=== PATIENT | male | born 1960 | race Caucasian/White ===

== ENCOUNTER 2016-12-22 08:41 | Observation (INO) | payer SELFPAY ==
[~2016-12-22] VITALS: Ht 185.4 cm; Wt 87.4 kg
[2016-12-22] VITALS (10 sets, daily range): BP systolic 99–134; BP diastolic 58–93; PULSE 81–92; RESP 16–20; TEMP 97.9–98.2; O2SAT 95–97
[~2016-12-22 08:41] MED LIST: ULTR50TA PO
[2016-12-22] MEDS ORDERED: SODIUM CHLORIDE 0.9% FLUSH 10 ML FLUSH IVF PRN (09:00)
[2016-12-22 09:05] LABS: AUTOMATED NEUTROPHIL # 5.3 TH/MM3 (1.8-7.7); BASOPHIL # 0.4 TH/MM3 (0-0.2); BASOPHIL % 4.8 % (0.0-2.0); EOSINOPHIL # 0.1 TH/MM3 (0-0.4); EOSINOPHIL % 0.6 % (0.0-4.0); HEMATOCRIT 44.1 % (39.0-51.0); HEMO FLAGS DIFF FINAL; LYMPH % 24.8 % (9.0-44.0); LYMPHOCYTE # 2.2 TH/MM3 (1.0-4.8); MEAN CELL VOLUME 100.1 FL (80.0-100.0); MEAN CORPUSCULAR HEMOGLOBIN 34.2 PG (27.0-34.0); MEAN CORPUSCULAR HGB CONC 34.1 % (32.0-36.0); MONO % 8.9 % (0.0-8.0); NEUT % 60.9 % (16.0-70.0); PLATELET COUNT 178 TH/MM3 (150-450); RED CELL DISTRIBUTION WIDTH 12.8 % (11.6-17.2); WHITE BLOOD COUNT 8.8 TH/MM3 (4.0-11.0)
[2016-12-22] MEDS ORDERED: NITROGLYCERIN 0.4 MG SL 25 TABS/BTL SL ONE (09:15)
[2016-12-22 09:17] LABS: APTT (PATIENT) 27.5 SEC (24.3-30.1); INTERNATIONAL NORMALIZED RATIO 0.9 RATIO
--- NOTE | 2016-12-22 09:19 | PD ---
HPI Chief Complaint: Chest Pain Time Seen by Provider: 08:47 Travel History International Travel<30 days: No Contact w/Intl Traveler<30days: No Traveled to known affect area: No History of Present Illness HPI 56-year-old male presents with central chest pain and left arm soreness that started yesterday. He states it feels uncomfortable. He denies prior history of this. He notes taking an aspirin prior to arrival. He denies prior cardiac workup or following with a corporate planning manager. He denies prior cardiac history. He denies other concurrent complaints. He notes family history of heart disease. He denies specific modifying factors. Duration is one day. PFSH Past Medical History Cardiovascular Problems: No Diminished Hearing: No Endocrine: No Gastrointestinal Disorders: No Genitourinary: No Immune Disorder: No Inguinal Hernia: Yes (15 YRS AGO) Musculoskeletal: No Neurologic: No Reproductive: No Respiratory: No Tetanus Vaccination: > 5 Years Influenza Vaccination: No Past Surgical History Abdominal Surgery: Yes (HERNIA REPAIR) Other Surgery: Yes (HERNIA) Family History Family Myocardial Infarction: Yes Family Hypercholesterolemia: Yes Social History Alcohol Use: Yes (daily) Tobacco Use: Yes (2-3 cigars daily) Substance Use: No (denies to me) Allergies-Medications (Allergen,Severity, Reaction): Coded Allergies: No Known Allergies (Verified , 12/22/16) Reported Meds & Prescriptions Reported Meds & Active Scripts Active No Active Prescriptions or Reported Medications Review of Systems Except as stated in HPI: all other systems reviewed are Neg Physical Exam Narrative GENERAL: Well-nourished, well-developed patient. SKIN: Warm and dry. HEAD: Normocephalic and atraumatic. EYES: No injection or drainage. ENT: No nasal drainage noted. NECK: Supple, trachea midline. CARDIOVASCULAR: Regular rate and rhythm RESPIRATORY: Breath sounds equal bilaterally. No accessory muscle use. GASTROINTESTINAL: Abdomen soft, non-tender, nondistended. EXTREMITIES: No edema. NEUROLOGICAL: Awake and alert. Motor and sensory grossly within normal limits. Normal speech. Data Data Last Documented VS Vital Signs Date Time Temp Pulse Resp B/P Pulse Ox O2 Delivery O2 Flow Rate FiO2 12/22/16 10:38 99/58 12/22/16 10:29 87 16 95 Room Air 12/22/16 08:50 98.0 Orders Electrocardiogram (12/22/16 08:49) Ckmb (Isoenzyme) Profile (12/22/16 08:49) Complete Blood Count With Diff (12/22/16 08:49) Comprehensive Metabolic Panel (12/22/16 08:49) Magnesium (Mg) (12/22/16 08:49) Prothrombin Time / Inr (Pt) (12/22/16 08:49) Act Partial Throm Time (Ptt) (12/22/16 08:49) Troponin I (12/22/16 08:49) Chest, Single Ap (12/22/16 08:49) Ecg Monitoring (12/22/16 08:49) Bilateral Bp Monitoring (12/22/16 08:49) Iv Access Insert/Monitor (12/22/16 08:49) Oximetry (12/22/16 08:49) Sodium Chloride 0.9% Flush (Ns Flush) (12/22/16 09:00) Lipase (12/22/16 08:49) Nitroglycerin Sl (Nitrostat Sl) (12/22/16 09:15) Drug Screen, Random Urine (12/22/16 09:17) Sodium Chlorid 0.9% 500 Ml Inj (Ns 500 M (12/22/16 09:30) Sodium Chlorid 0.9% 500 Ml Inj (Ns 500 M (12/22/16 10:15) CKMB (12/22/16 09:20) CKMB% (12/22/16 09:20) Admit Order (Ed Use Only) (12/22/16 10:54) Labs Laboratory Tests Test 12/22/16 12/22/16 08:55 09:20 White Blood Count 8.8 TH/MM3 Red Blood Count 4.40 MIL/MM3 Hemoglobin 15.1 GM/DL Hematocrit 44.1 % Mean Corpuscular Volume 100.1 FL Mean Corpuscular Hemoglobin 34.2 PG Mean Corpuscular Hemoglobin 34.1 % Concent Red Cell Distribution Width 12.8 % Platelet Count 178 TH/MM3 Mean Platelet Volume 7.8 FL Neutrophils (%) (Auto) 60.9 % Lymphocytes (%) (Auto) 24.8 % Monocytes (%) (Auto) 8.9 % Eosinophils (%) (Auto) 0.6 % Basophils (%) (Auto) 4.8 % Neutrophils # (Auto) 5.3 TH/MM3 Lymphocytes # (Auto) 2.2 TH/MM3 Monocytes # (Auto) 0.8 TH/MM3 Eosinophils # (Auto) 0.1 TH/MM3 Basophils # (Auto) 0.4 TH/MM3 CBC Comment DIFF FINAL Differential Comment Prothrombin Time 10.0 SEC Prothromb Time International 0.9 RATIO Ratio Activated Partial 27.5 SEC Thromboplast Time Sodium Level 138 MEQ/L Potassium Level 4.4 MEQ/L Chloride Level 103 MEQ/L Carbon Dioxide Level 26.3 MEQ/L Anion Gap 9 MEQ/L Blood Urea Nitrogen 8 MG/DL Creatinine 0.72 MG/DL Estimat Glomerular Filtration 113 ML/MIN Rate Random Glucose 124 MG/DL Calcium Level 9.1 MG/DL Magnesium Level 1.6 MG/DL Total Bilirubin 0.5 MG/DL Aspartate Amino Transf 36 U/L (AST/SGOT) Alanine Aminotransferase 38 U/L (ALT/SGPT) Alkaline Phosphatase 117 U/L Total Creatine Kinase 101 U/L Creatine Kinase MB 1.7 NG/ML Troponin I LESS THAN 0.02 NG/ML Total Protein 8.1 GM/DL Albumin 3.7 GM/DL Lipase 132 U/L MDM Medical Decision Making Medical Screen Exam Complete: Yes Emergency Medical Condition: Yes Medical Record Reviewed: Yes (past history confirmed, no prior EKG) Interpretation(s) EKG is sinus rhythm at 90, isolated minimal elevation V2 without reciprocal changes CBC & BMP Diagram 12/22/16 08:55 12/22/16 09:20 Last 24 hours Impressions Chest X-Ray 12/22/16 0849 Signed Impressions: Service Date/Time: Thursday, December 22, 2016 09:00 - CONCLUSION: No acute disease. Eric Colin MD FACR Differential Diagnosis Angina, gastritis, pancreatitis, musculoskeletal, ID Narrative Course Will check blood work, EKG, chest x-ray and dose with nitroglycerin and discuss with cardiology BP has improved with IV fluid hydration, will dose with nitroglycerin pain decreased from a 5 to a 4 with nitro but decreased bp, Patient agrees to admission to the hospital Physician Communication Physician Communication dr hicks agrees not a stemi after review of ekg, to control pain and trend troponin dr hicks states if hospitalist confortable can stay in [facility] and he will be available dr farley agrees to [facility] observation Admitting Information Admitting Physician Requests: Observation Scripts No Active Prescriptions or Reported Meds Berkley Antonio MD Dec 22, 2016 09:19
[2016-12-22] MEDS ORDERED: SODIUM CHLORID 0.9% 500 ML INJ 500 ML IV ONE ×2 (09:30→10:15)
[2016-12-22 09:55] LABS: BICARBONATE 26.3 MEQ/L (21.0-32.0)
[2016-12-22 09:56] LABS: BLOOD UREA NITROGEN 8 MG/DL (7-18); MAGNESIUM 1.6 MG/DL (1.5-2.5)
--- NOTE | 2016-12-22 09:56 | RADRPT ---
EXAM DATE/TIME: 12/22/2016 09:00 [facility] COMPARISON: No previous studies available for comparison. INDICATIONS : Chest pain and shortness of breath. MEDICAL HISTORY : None. SURGICAL HISTORY : None. ENCOUNTER: Initial ACUITY: 3 days PAIN SCORE: 5/10 LOCATION: Bilateral chest FINDINGS: A single view of the chest demonstrates the lungs to be symmetrically aerated without evidence of mas s, infiltrate or effusion. The cardiomediastinal contours are unremarkable. Osseous structures are intact. CONCLUSION: No acute disease. Eric Colin MD FACR on December 22, 2016 at 9:54 Board Certified Radiologist. This report was verified electronically.
[2016-12-22 09:58] LABS: ALT (GPT) 38 U/L (12-78); GLOMERULAR FILTRATION RATE 113 ML/MIN (>89)
[2016-12-22 10:00] LABS: ANION GAP 9 MEQ/L (5-15); CHLORIDE 103 MEQ/L (98-107); POTASSIUM 4.4 MEQ/L (3.5-5.1); SODIUM (NA) 138 MEQ/L (136-145); TOTAL BILIRUBIN ADULT 0.5 MG/DL (0.2-1.0)
[2016-12-22 10:01] LABS: ALKALINE PHOSPHATASE 117 U/L (45-117); CREATINE KINASE 101 U/L (39-308)
[2016-12-22 10:05] LABS: AST (GOT) 36 U/L (15-37)
[2016-12-22 10:14] LABS: CKMB 1.7 NG/ML (0.5-3.6)
[2016-12-22] MEDS ORDERED: SODIUM CHLORIDE 0.9% FLUSH 10 ML FLUSH IV FLUSH PRN (11:00)
[2016-12-22 11:33] LABS: AMPHETAMINE, URINE NEG (NEG)
[2016-12-22 11:34] LABS: BARBITURATES, URINE NEG (NEG)
[2016-12-22 11:39] LABS: COCAINE, URINE NEG (NEG)
[2016-12-22 12:04] LABS: CREATINE KINASE 66 U/L (39-308)
--- NOTE | 2016-12-22 15:13 | HHI.HP ---
HPI Primary Care Physician No Primary Care Physician Admission Diagnosis chest pain Diagnoses: Chief Complaint: chest pain History of Present Illness Patient is a 56-year-old gentleman with a history of alcohol dependency who comes in complaining of 10 out of 10 substernal chest pain radiating down the left arm which started 1 day ago. He did not try any [id number] medication but thought rest might have helped it. Unfortunately he came back. He described the pain as tightness. He called his ex- who gave him aspirin and brought him to the hospital. The patient did have abnormal EKG and was seen in the emergency room team for this. My review the EKG does show some minimal if at all elevation. There are no reciprocal changes or changes consistent with ischemic event. Patient has had negative cardiac enzymes. He has not eaten at all today and does not drink caffeine. Patient will be observed in the chest pain center and we will follow his progress with the nuclear stress test Review of Systems Constitutional: DENIES: Diaphoretic episodes, Fatigue, Fever, Weight gain, Weight loss, Chills, Dizziness, Change in appetite, Night Sweats Endocrine: DENIES: Heat/cold intolerance, Polydipsia, Polyuria, Polyphagia Eyes: DENIES: Blurred vision, Diplopia, Eye inflammation, Eye pain, Vision loss , Photosensitivity, Double Vision Ears, nose, mouth, throat: DENIES: Tinnitus, Hearing loss, Vertigo, Nasal discharge, Oral lesions, Throat pain, Hoarseness, Ear Pain, Running Nose, Epistaxis, Sinus Pain, Toothache, Odynophagia Respiratory: DENIES: Apneas, Cough, Snoring, Wheezing, Hemoptysis, Sputum production, Shortness of breath Cardiovascular: COMPLAINS OF: Chest pain Gastrointestinal: DENIES: Abdominal pain, Black stools, Bloody stools, Constipation, Diarrhea, Nausea, Vomiting, Difficulty Swallowing, Anorexia Genitourinary: DENIES: Sexual dysfunction, Urinary frequency, Urinary incontinence, Urgency, Hematuria, Dysuria, Nocturia, Penile Discharge, Testicular Pain, Testicular Swelling Integumentary: DENIES: Abnormal pigmentation, Nail changes, Pruritus, Rash Hematologic/lymphatic: DENIES: Bruising, Lymphadenopathy Immunologic/allergic: DENIES: Eczema, Urticaria Neurologic: DENIES: Abnormal gait, Headache, Localized weakness, Paresthesias, Seizures, Speech Problems, Tremor, Poor Balance Psychiatric: DENIES: Anxiety, Confusion, Mood changes, Depression, Hallucinations, Agitation, Suicidal Ideation, Homicidal Ideation, Delusions Past Family Social History Past Medical History none Past Surgical History hernia repair Reported Medications none Allergies: Coded Allergies: No Known Allergies (Verified , 12/22/16) Active Ordered Medications reviewed in the EMR Family History mom from [place] father with cad at 78 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 SKIN: No rashes, ecchymoses or lesions. Cool and dry. HEAD: Atraumatic. Normocephalic. No temporal or scalp tenderness. EYES: Pupils equal round and reactive. Extraocular motions intact. No scleral icterus. bilat eye erythema, right eye drainage ENT: Nose without bleeding, purulent drainage or septal hematoma. Throat without erythema, tonsillar hypertrophy or exudate. Uvula midline. Airway patent. NECK: Trachea midline. No JVD or lymphadenopathy. Supple, nontender, no meningeal signs. CARDIOVASCULAR: Regular rate and rhythm without murmurs, gallops, or rubs. RESPIRATORY: Clear to auscultation. Breath sounds equal bilaterally. No wheezes , rales, or rhonchi. GASTROINTESTINAL: Abdomen soft, non-tender, nondistended. No hepato-splenomegaly , or palpable masses. No guarding. MUSCULOSKELETAL: Extremities without clubbing, cyanosis, or edema. No joint tenderness, effusion, or edema noted. No calf tenderness. Negative Homans sign bilaterally. NEUROLOGICAL: Awake and alert. Cranial nerves II through XII intact. Motor and sensory grossly within normal limits. Five out of 5 muscle strength in all muscle groups. Normal speech. Laboratory Laboratory Tests Test 12/22/16 12/22/16 12/22/16 12/22/16 08:55 09:20 11:00 11:40 White Blood Count 8.8 Red Blood Count 4.40 Hemoglobin 15.1 Hematocrit 44.1 Mean Corpuscular Volume 100.1 Mean Corpuscular Hemoglobin 34.2 Mean Corpuscular Hemoglobin 34.1 Concent Red Cell Distribution Width 12.8 Platelet Count 178 Mean Platelet Volume 7.8 Neutrophils (%) (Auto) 60.9 Lymphocytes (%) (Auto) 24.8 Monocytes (%) (Auto) 8.9 Eosinophils (%) (Auto) 0.6 Basophils (%) (Auto) 4.8 Neutrophils # (Auto) 5.3 Lymphocytes # (Auto) 2.2 Monocytes # (Auto) 0.8 Eosinophils # (Auto) 0.1 Basophils # (Auto) 0.4 CBC Comment DIFF FINAL Differential Comment Prothrombin Time 10.0 Prothromb Time International 0.9 Ratio Activated Partial 27.5 Thromboplast Time Sodium Level 138 Potassium Level 4.4 Chloride Level 103 Carbon Dioxide Level 26.3 Anion Gap 9 Blood Urea Nitrogen 8 Creatinine 0.72 Estimat Glomerular Filtration 113 Rate Random Glucose 124 Calcium Level 9.1 Magnesium Level 1.6 Total Bilirubin 0.5 Aspartate Amino Transf 36 (AST/SGOT) Alanine Aminotransferase 38 (ALT/SGPT) Alkaline Phosphatase 117 Total Creatine Kinase 101 66 Creatine Kinase MB 1.7 Troponin I LESS THAN 0.02 LESS THAN 0.02 Total Protein 8.1 Albumin 3.7 Lipase 132 Urine Opiates Screen NEG Urine Barbiturates Screen NEG Urine Amphetamines Screen NEG Urine Benzodiazepines Screen NEG Urine Cocaine Screen NEG Urine Cannabinoids Screen NEG Result Diagram: 12/22/16 0855 12/22/1620 Imaging Last Impressions Chest X-Ray 12/22/16 0849 Signed Impressions: Service Date/Time: Thursday, December 22, 2016 09:00 - CONCLUSION: No acute disease. 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
[2016-12-22 15:22] LABS: CREATINE KINASE 65 U/L (39-308)
[2016-12-22] MEDS ORDERED: PANTOPRAZOLE SODIUM 40 MG VIAL IV PUSH ONE (15:45)
[2016-12-22] MEDS ORDERED: REGADENOSON INJ 0.4 MG/5 ML SYR IV ONE (16:33)
--- NOTE | 2016-12-22 17:38 | RADRPT ---
EXAM DATE/TIME: 12/22/2016 16:22 [facility] COMPARISON: No previous studies available for comparison. INDICATIONS : Substernal chest pain. Angina. Abnormal EKG. DOSE: 25.5 mCi Tc99m Myoview at stress. 8.7 mCi Tc99m Myoview at rest. 0.4 mg Lexiscan STRESS SYMPTOMS: Shortness of breath and chest pressure. EJECTION FRACTION: 63% MEDICAL HISTORY : None SURGICAL HISTORY : Hernia repair. ENCOUNTER: Initial ACUITY: 1 day PAIN SCALE: 4/10 LOCATION: Substernal chest TECHNIQUE: The patient underwent pharmacologic stress with infusion of prescribed dose. Continuous ECG tracing was monitored during stress. Gated SPECT imaging was performed after stress and conventional SPECT i maging was performed at rest. The examination was performed on a SPECT/CT scanner, both attenuation and non-corrected datasets were reviewed. FINDINGS: DISTRIBUTION: The maximum perfused segment at stress is in the apical wall. PERFUSION STUDY: The pattern of perfusion at stress is within normal limits. GATED STUDY: There is intact wall motion and thickening without hypokinetic or dyskinetic segments. CONCLUSION: Unremarkable myocardial perfusion examination. RISK CATEGORY: low Suresh Kennedy MD on December 22, 2016 at 17:35 Board Certified Radiologist. This report was verified electronically.
[2016-12-22] MEDS ORDERED: PROT40TA PO (17:58)
--- NOTE | 2016-12-22 17:59 | HHI.DCPOC ---
Discharge Care Plan Diagnosis: (1) Chest pain, atypical Goals to Promote Your Health * To prevent worsening of your condition and complications * To maintain your health at the optimal level Directions to Meet Your Goals Take your medications as prescribed Follow your dietary instruction Follow activity as directed Keep your appointments as scheduled Take your immunizations and boosters as scheduled If your symptoms worsen call your PCP, if no PCP go to Urgent Care Center or Emergency Room Smoking is Dangerous to Your Health. Avoid second hand smoke Call the 24-hour hour crisis hotline for domestic abuse at [facility] Dec 22, 2016 17:59
[2016-12-22] MEDS ORDERED: SODIUM CHLORIDE 0.9% FLUSH 10 ML FLUSH IV FLUSH SCH (21:00)
--- NOTE | 2016-12-23 18:27 | EKG ---
Date Performed: 12/22/2016 Time Performed: 11:46:22 PTAGE: 56 years EKG: Sinus rhythm WITH FIRST DEGREE AV BLOCK POSSIBLE SEPTAL MYOCARDIAL INFARCTION Compared to prior tracing no signif icant change. The wisespread ST elevation is unchanged ABNORMAL ECG PREVIOUS TRACING : 12/22/2016 08.53 DOCTOR: Liz Benjamin Interpretating Date/Time 12/23/2016 18:26:08
--- NOTE | 2016-12-23 18:27 | EKG ---
Date Performed: 12/22/2016 Time Performed: 14:08:19 PTAGE: 56 years EKG: Sinus rhythm WITH FIRST DEGREE AV BLOCK LOW QRS VOLTAGE IN PRECORDIAL LEADS SEPTAL MYOCARDIAL INFARCTION Improvem ent in the diffuse ST segment elevation, but otherwise no serial change. Clinical correlation is ismael mmended ABNORMAL ECG PREVIOUS TRACING : 12/22/2016 11.46 DOCTOR: Liz Benjamin Interpretating Date/Time 12/23/2016 18:26:48
--- NOTE | 2016-12-23 18:27 | EKG ---
Date Performed: 12/22/2016 Time Performed: 08:53:32 PTAGE: 56 years EKG: Sinus rhythm WITH FIRST DEGREE AV BLOCK Anterolateral ST elevation, consider and exclude repolarization abnormali ty, normal variant, pericarditis with possible myocardial injury. There is no prior tracing for domi barcenas ABNORMAL ECG INTERPRETATION BASED ON A DEFAULT AGE OF 40 YEARS NO PREVIOUS TRACING DOCTOR: Liz Benjamin Interpretating Date/Time 12/23/2016 18:25:28
--- NOTE | 2016-12-24 13:23 | TR ---
Date Performed: 12/22/2016 Time Performed: 16:42:17 DOCTOR: Gary Rodrigues DRUG LIST: CLINICAL HISTORY: ABNORMAL ECG REASON FOR TEST: ABN EKG REASON FOR ENDING: OBSERVATION: CONCLUSION: Lexiscan stress test was performed under standard four minute protocol. Radionuclid e was injected one minute prior to ending the test. No electrocardiographic abormalities were present to suggest ischemia. Nuclear imaging and interpretation are pending. COMMENTS:
== END 2016-12-22 18:26 | disposition home or self-care (01) ==
LOC: PHED 08:41 → PHEDA 10:54 → PH3A 12:03
PROVIDERS: ADMIT Hospitalist; ATTEND Hospitalist
DX: R07.89 Other chest pain (principal); R07.2 Precordial pain; F10.20 Alcohol dependence, uncomplicated; R94.31 Abnormal electrocardiogram [ECG] [EKG]; H10.9 Unspecified conjunctivitis; R06.02 Shortness of breath; I20.9 Angina pectoris, unspecified; I44.0 Atrioventricular block, first degree
CPT/HCPCS: 71010; 78452; 80053; 80307; 82550; 82552; 83690; 83735; 84484; 85025; 85610; 85730; 93005; 93017; 96360; 99285; A9502; G0378; J2785; J7040